=== PATIENT | male | born 1965 | race Caucasian/White ===

== ENCOUNTER → 2016-08-26 | Outpatient (CLI) | payer OTHER ==
[~2016-08-26] MED LIST: AMBIEN10 MG PO; BACTRIM DS TAB1 EACH PO; COREG 6.256.25 MG/TA PO; ERGOCALCIFER50000 IU PO; LEVOTHYROXIN0.025 MG PO; LISINOPRIL10 MG PO; MICRONIZED COLES1 GM PO; NEXIUM 40MG40 MG PO; NORCO 10-325 T1 EACH PO; PRAVACHOL 40MG40 MG PO; PRENATA1 CTB PO; SANDOSTATI IM; SANDOSTATI200 MCG/ML IJ; VITAMIN B-1000 MCG/1 IM; XARELTO20 MG PO; ZYLOPRIM100 MG PO
== END ==
LOC: RAD 11:30
DX: Z51.81 Encounter for therapeutic drug level monitoring (principal); Z79.01 Long term (current) use of anticoagulants; M21.41 Flat foot [pes planus] (acquired), right foot; E11.9 Type 2 diabetes mellitus without complications; M79.671 Pain in right foot; E03.9 Hypothyroidism, unspecified; I82.412 Acute embolism and thrombosis of left femoral vein

== ENCOUNTER → 2016-09-01 | Outpatient (CLI) | payer OTHER | LOC: RAD 12:34 | DX: K90.89 Other intestinal malabsorption (principal); E11.9 Type 2 diabetes mellitus without complications; M79.671 Pain in right foot; L03.115 Cellulitis of right lower limb; Z98.890 Other specified postprocedural states ==

== ENCOUNTER → 2016-09-03 | Outpatient (CLI) | payer OTHER | LOC: LAB 16:42 | DX: E11.9 Type 2 diabetes mellitus without complications (principal) ==

== ENCOUNTER → 2016-09-19 | Outpatient (CLI) | payer OTHER ==
[2016-09-19 17:57] VITALS: BP 146/100
[2016-09-19 19:26] VITALS: BP 192/98
== END ==
LOC: AMSURD 17:03
DX: E86.0 Dehydration (principal); Z98.84 Bariatric surgery status; K91.1 Postgastric surgery syndromes
CPT/HCPCS: J7120

== ENCOUNTER → 2016-09-30 | Day surgery (SDC) | payer OTHER | LOC: MSO 14:56 | DX: K21.9 Gastro-esophageal reflux disease without esophagitis (principal); R11.2 Nausea with vomiting, unspecified; K22.70 Barrett's esophagus without dysplasia; I10 Essential (primary) hypertension; G47.33 Obstructive sleep apnea (adult) (pediatric); Z98.84 Bariatric surgery status | CPT/HCPCS: 00740; A4649; J7030 ==

== ENCOUNTER → 2016-10-10 | Outpatient (CLI) | payer OTHER ==
[2016-10-10 15:38] VITALS: BP 158/89
[2016-10-10 17:56] VITALS: BP 176/96
== END ==
LOC: AMSURD 13:43
DX: E11.9 Type 2 diabetes mellitus without complications (principal); K91.1 Postgastric surgery syndromes; K91.2 Postsurgical malabsorption, not elsewhere classified; R11.0 Nausea
CPT/HCPCS: J7120

== ENCOUNTER → 2016-10-20 | Outpatient (CLI) | payer OTHER ==
[2016-10-20 09:38] VITALS: BP 159/89
[2016-10-20 12:07] VITALS: BP 194/94
== END ==
LOC: RAD 08:39
DX: R10.84 Generalized abdominal pain (principal); K90.89 Other intestinal malabsorption; E11.9 Type 2 diabetes mellitus without complications; E86.0 Dehydration; R93.7 Abnormal findings on diagnostic imaging of other parts of musculoskeletal system
CPT/HCPCS: J7120; Q9967

== ENCOUNTER → 2016-11-06 | Outpatient (CLI) | payer OTHER ==
[2016-11-06 15:30] VITALS: BP 152/95
[2016-11-06 18:02] VITALS: BP 155/88
== END ==
LOC: AMSURD 15:15
DX: R10.84 Generalized abdominal pain (principal); K90.89 Other intestinal malabsorption; E11.9 Type 2 diabetes mellitus without complications; E86.0 Dehydration; R11.0 Nausea; K91.2 Postsurgical malabsorption, not elsewhere classified; K91.1 Postgastric surgery syndromes
CPT/HCPCS: J7120

== ENCOUNTER → 2016-11-20 | Outpatient (CLI) | payer MEDICARE, OTHER ==
[2016-11-20 09:40] VITALS: BP 152/97
--- NOTE | 2016-11-20 12:16 | NUR ---
IVF infusion is completed, patient tolerated well, describes going next to Oncologist for update today on surgery plans for lesion under left arm. he is dimsissed per w/c to care of spouse.
[2016-11-20 12:19] VITALS: BP 128/81
== END ==
LOC: AMSURD 09:32
DX: E86.0 Dehydration (principal); Z98.84 Bariatric surgery status; K91.1 Postgastric surgery syndromes
CPT/HCPCS: J7120

== ENCOUNTER 2016-12-09 13:37 | Emergency (ER) | payer MEDICARE, OTHER ==
[~2016-12-09] VITALS: Ht 177.8 cm; Wt 80.0 kg
[~2016-12-09 13:37] MED LIST changes: -AMBIEN10 MG PO; -LISINOPRIL10 MG PO
[2016-12-09 16:47] VITALS: BP 174/97
== END 2016-12-09 16:45 | disposition home or self-care (01) ==
LOC: ED 13:37
DX: M25.562 Pain in left knee (principal); M25.561 Pain in right knee; W19.XXXA Unspecified fall, initial encounter; Y92.531 Health care provider office as the place of occurrence of the external cause; E11.8 Type 2 diabetes mellitus with unspecified complications; I10 Essential (primary) hypertension; K91.2 Postsurgical malabsorption, not elsewhere classified; K95.89 Other complications of other bariatric procedure; K91.1 Postgastric surgery syndromes; Y83.8 Other surgical procedures as the cause of abnormal reaction of the patient, or of later complication, without mention of misadventure at the time of the procedure; Z98.890 Other specified postprocedural states; C80.1 Malignant (primary) neoplasm, unspecified; E03.9 Hypothyroidism, unspecified
CPT/HCPCS: J7120

== ENCOUNTER 2016-12-20 15:44 | Emergency (ER) | payer MEDICARE, OTHER ==
[~2016-12-20] VITALS: Ht 177.8 cm; Wt 80.9 kg
[2016-12-20 19:10] VITALS: BP 168/94
== END 2016-12-20 19:02 | disposition home or self-care (01) ==
LOC: ED 15:44
DX: E86.0 Dehydration (principal); R10.9 Unspecified abdominal pain; Z98.84 Bariatric surgery status
CPT/HCPCS: J7030

== ENCOUNTER 2016-12-30 11:53 | Outpatient (RCR) | payer MEDICARE, OTHER ==
[~2016-12-30] VITALS: Ht 177.8 cm; Wt 80.9 kg
[2016-12-30 12:21] VITALS: BP 156/79
[2016-12-30 14:26] VITALS: BP 179/96
[2017-01-09 15:37] VITALS: BP 124/77
[2017-01-09] MEDS ORDERED: AMBIEN10 MG PO (16:04)
[2017-01-09] MEDS ORDERED: LISINOPRIL10 MG PO (16:05)
[2017-01-09 17:00] VITALS: BP 133/71
[2017-01-19 13:30] VITALS: BP 115/76
[2017-01-19 15:00] VITALS: BP 142/88
[2017-01-29 13:14] VITALS: BP 165/95
[2017-01-29 13:49] VITALS: BP 162/99
[2017-02-06 13:40] VITALS: BP 132/66
[2017-02-06 13:58] VITALS: BP 144/91
[2017-02-06 14:27] VITALS: BP 156/98
[2017-02-20 15:50] VITALS: BP 138/82
[2017-02-20 17:30] VITALS: BP 172/92
[2017-03-24 08:44] VITALS: BP 141/91
== END 2017-03-30 | disposition home or self-care (01) ==
LOC: AMSURD → EDSTATUS 13:37
DX: E86.0 Dehydration (principal); Z98.84 Bariatric surgery status; K91.1 Postgastric surgery syndromes
CPT/HCPCS: A4301; J3475; J7120

== ENCOUNTER → 2017-03-24 | Outpatient (CLI) | payer MEDICARE, OTHER ==
[~2017-03-24] MED LIST changes: +AMBIEN10 MG PO; +LISINOPRIL10 MG PO
== END ==
LOC: RAD 08:03
DX: K90.49 Malabsorption due to intolerance, not elsewhere classified (principal); E11.9 Type 2 diabetes mellitus without complications; Z12.5 Encounter for screening for malignant neoplasm of prostate; K91.2 Postsurgical malabsorption, not elsewhere classified; C4A.62 Merkel cell carcinoma of left upper limb, including shoulder; R97.20 Elevated prostate specific antigen [PSA]; N52.03 Combined arterial insufficiency and corporo-venous occlusive erectile dysfunction

== ENCOUNTER 2017-04-08 13:52 | Outpatient (RCR) | payer MEDICARE, OTHER ==
[~2017-04-08] VITALS: Ht 177.8 cm; Wt 77.7 kg
[2017-04-08 14:12] VITALS: BP 159/105
[2017-04-08 16:32] VITALS: BP 203/109
--- NOTE | 2017-04-08 16:33 | NUR ---
PT EDUCATED ON HIGH BP, RECOMMENDED TO PT AND HE BE SEEN AT THIS TIME BY A PROVIDER REGARDING ELEVATED BP TODAY, PT DISCUSSING THIS WITH HIS
--- NOTE | 2017-04-08 16:52 | NUR ---
PT REFUSING TO BE SEEN FOR HIGH BP AT THIS TIME, STATES HE IS GOING TO CHECK IT AGAIN AFTER SI[facility] THIS EVENING AND WILL RETURN IF NEEDED, NO FURTHER ORDERS AT THIS TIME
[2017-05-09 14:16] VITALS: BP 135/77
[2017-05-09 16:18] VITALS: BP 157/80
[2017-05-14 15:02] VITALS: BP 128/71
[2017-05-14 17:03] VITALS: BP 166/95
[2017-05-25 17:40] VITALS: BP 170/98
[2017-05-25 20:10] VITALS: BP 160/98
[2017-06-02 13:15] VITALS: BP 165/98
[2017-06-02 15:45] VITALS: BP 169/77
[2017-06-09] MEDS ORDERED: NORVASC 5MG5 MG/TAB PO (14:15)
[2017-06-09] MEDS ORDERED: OSTERA TABLET1 EACH PO (14:16)
[2017-06-09] MEDS ORDERED: ONDANSETRON HYDR4 MG PO (14:16)
[2017-06-09] MEDS ORDERED: GLUCOPHAGE PO (14:17)
[2017-06-09] MEDS ORDERED: NORCO 10-325 T1 EACH PO (14:47)
[2017-06-11 12:27] VITALS: BP 150/88
[2017-06-11 14:33] VITALS: BP 173/97
[2017-06-22] MEDS ORDERED: NEURONTIN300 M1 PO (15:37)
[2017-06-22] MEDS ORDERED: KLONOPIN 1MG1 MG PO (15:37)
[2017-06-22] MEDS ORDERED: LEXAPRO 10MG10 MG PO (15:38)
[2017-06-22] MEDS ORDERED: PRENATAL COMPL1 EACH PO (15:39)
[2017-06-22] MEDS ORDERED: VITAMIN D50000 I2 PO (15:40)
== END 2017-07-07 | disposition home or self-care (01) ==
LOC: AMSURD
DX: E86.0 Dehydration (principal); Z98.84 Bariatric surgery status; K91.1 Postgastric surgery syndromes
CPT/HCPCS: A4301; J1644; J7120

== ENCOUNTER → 2017-05-14 | Outpatient (CLI) | payer MEDICARE, OTHER ==
[2017-05-09 16:18] VITALS: BP 157/80
[2017-05-14 15:20] LABS: EOS # 0.1 (0.04-0.40); EOS % 1.5 % (0.0-4.0); HEMATOCRIT 36.2 % (42.0-52.0); HEMOGLOBIN 11.8 g/dL (13.5-18.0); MEAN CELL VOLUME 106 fl (78-100); MEAN CORPUSCULAR HEMOGLOBIN 35 pg (27-31); MEAN CORPUSCULAR HGB CONC 33 g/dL (33-37); MEAN PLATELET VOLUME 9.2 fl (7.4-10.4); MONO # 0.3 (0.20-0.80); NEU # 2.5 (1.40-6.50); PLATELET COUNT 156 K/mm3 (130-400); RED BLOOD COUNT 3.42 M/mm3 (4.20-5.60)
[2017-05-14 17:35] LABS: BUN/CREATININE RATIO 25.8 (6.0-26.0); CALCIUM 8.7 mg/dL (8.4-10.2); POTASSIUM 4.3 mmol/L (3.6-5.0); TOTAL BILIRUBIN 0.4 mg/dL (0.2-1.3); TOTAL PROTEIN 5.7 g/dL (6.3-8.2)
== END ==
LOC: LAB 14:40
PROVIDERS: Internal Medicine
DX: E11.9 Type 2 diabetes mellitus without complications (principal); K91.1 Postgastric surgery syndromes; Z98.84 Bariatric surgery status

== ENCOUNTER 2017-06-09 13:19 | Emergency (ER) | payer MEDICARE, OTHER ==
[2017-06-09 14:10] LABS: EOS % 0.4 % (0.0-4.0); HEMOGLOBIN 11.6 g/dL (13.5-18.0); LYMPH# 0.8 (1.50-4.00); MEAN CELL VOLUME 102 fl (78-100); MEAN CORPUSCULAR HEMOGLOBIN 34 pg (27-31); MEAN CORPUSCULAR HGB CONC 33 g/dL (33-37); MONO # 0.5 (0.20-0.80); NEU # 3.2 (1.40-6.50); PLATELET COUNT 171 K/mm3 (130-400); RED BLOOD COUNT 3.43 M/mm3 (4.20-5.60); RED CELL DISTRIBUTION WIDTH 12.1 % (11.5-14.5); WHITE BLOOD COUNT 4.5 K/mm3 (4.8-10.8)
[2017-06-09] MEDS ORDERED: NORVASC 5MG5 MG/TAB PO (14:15)
[2017-06-09] MEDS ORDERED: OSTERA TABLET1 EACH PO (14:16)
[2017-06-09] MEDS ORDERED: ONDANSETRON HYDR4 MG PO (14:16)
[2017-06-09] MEDS ORDERED: GLUCOPHAGE PO (14:17)
[2017-06-09 14:20] LABS: ALBUMIN 3.2 g/dL (3.5-5.0); BUN/CREATININE RATIO 18.1 (6.0-26.0); CALCIUM 8.8 mg/dL (8.4-10.2); POTASSIUM 4.1 mmol/L (3.6-5.0); TOTAL BILIRUBIN 0.6 mg/dL (0.2-1.3)
[2017-06-09 14:21] LABS: URINE APPEARANCE CLEAR; URINE BILIRUBIN NEGATIVE (NEGATIVE); URINE BLOOD NEGATIVE (NEGATIVE); URINE COLOR YELLOW; URINE GLUCOSE NEGATIVE (NEGATIVE); URINE KETONE NEGATIVE (NEGATIVE); URINE LEUKOCYTE ESTERASE NEGATIVE (NEGATIVE); URINE NITRATE NEGATIVE (NEGATIVE); URINE PROTEIN(semi-quant) 1+ mg/dL (NEGATIVE); URINE UROBILINOGEN NORMAL (NORMAL); URINE WBC 0-1 /hpf (0-3)
[2017-06-09] MEDS ORDERED: NORCO 10-325 T1 EACH PO (14:47)
[2017-06-09 15:07] VITALS: BP 158/97
== END 2017-06-09 15:07 | disposition home or self-care (01) ==
LOC: ED 13:19
PROVIDERS: Physician Assistant
DX: R29.898 Other symptoms and signs involving the musculoskeletal system (principal); R51 Headache; R41.0 Disorientation, unspecified; E11.40 Type 2 diabetes mellitus with diabetic neuropathy, unspecified; Z98.84 Bariatric surgery status; K91.1 Postgastric surgery syndromes; Z85.821 Personal history of Merkel cell carcinoma; R10.84 Generalized abdominal pain; R60.0 Localized edema
CPT/HCPCS: J1644

== ENCOUNTER → 2017-06-15 | Outpatient (CLI) | payer MEDICARE, BC ==
[2017-06-11 14:33] VITALS: BP 173/97
[~2017-06-15] MED LIST changes: +GLUCOPHAGE PO; +KLONOPIN 1MG1 MG PO; +LEXAPRO 10MG10 MG PO; +NEURONTIN300 M1 PO; +NORVASC 5MG5 MG/TAB PO; +ONDANSETRON HYDR4 MG PO; +OSTERA TABLET1 EACH PO; +PRENATAL COMPL1 EACH PO; +VITAMIN D50000 I2 PO
== END ==
LOC: RAD 12:49
DX: C4A.62 Merkel cell carcinoma of left upper limb, including shoulder (principal); R41.82 Altered mental status, unspecified
CPT/HCPCS: A9585

== ENCOUNTER 2017-06-22 15:06 | Outpatient (RCR) | payer MEDICARE, BC ==
[~2017-06-22] VITALS: Ht 177.8 cm; Wt 77.7 kg
[~2017-06-22 15:06] MED LIST changes: -KLONOPIN 1MG1 MG PO; -LEXAPRO 10MG10 MG PO; -NEURONTIN300 M1 PO; -PRENATAL COMPL1 EACH PO; -VITAMIN D50000 I2 PO
[2017-06-22] MEDS ORDERED: KLONOPIN 1MG1 MG PO (15:37)
[2017-06-22] MEDS ORDERED: NEURONTIN300 M1 PO (15:37)
[2017-06-22] MEDS ORDERED: LEXAPRO 10MG10 MG PO (15:38)
[2017-06-22] MEDS ORDERED: PRENATAL COMPL1 EACH PO (15:39)
[2017-06-22] MEDS ORDERED: VITAMIN D50000 I2 PO (15:40)
[2017-06-22 15:43] VITALS: BP 145/90
[2017-06-22 17:56] VITALS: BP 170/102
[2017-08-24] MEDS ORDERED: MS CONTIN15 MG PO (14:24)
[2017-08-24 14:27] VITALS: BP 118/79
[2017-08-24 15:15] VITALS: BP 123/79
[2017-09-14 09:17] VITALS: BP 141/79
[2017-09-14 11:57] VITALS: BP 127/78
== END 2017-09-20 | disposition home or self-care (01) ==
LOC: AMSURD
DX: E86.0 Dehydration (principal); Z98.84 Bariatric surgery status; K91.1 Postgastric surgery syndromes
CPT/HCPCS: A4301; J7120

== ENCOUNTER 2017-09-26 13:34 | Outpatient (RCR) | payer MEDICARE, BC ==
--- NOTE | 2017-08-24 15:00 | NUR ---
this patients arrives, first liter has infused, when preparing to hang second liter patient states he would like to only receive one liter today and would come back at another time, patient was encouraged to come for fluids when necesary secondary to dehydration not when he feels it works for his schedule. he is dismissed ambulatory to self care
[~2017-09-26] VITALS: Ht 177.8 cm; Wt 77.7 kg
[~2017-09-26 13:34] MED LIST changes: +KLONOPIN 1MG1 MG PO; +LEXAPRO 10MG10 MG PO; +MS CONTIN15 MG PO; +NEURONTIN300 M1 PO; +PRENATAL COMPL1 EACH PO; +VITAMIN D50000 I2 PO
[2017-09-26 13:50] VITALS: BP 130/85
[2017-09-26 16:00] VITALS: BP 152/88
== END 2017-12-25 | disposition home or self-care (01) ==
LOC: AMSURD
DX: E86.0 Dehydration (principal); K91.1 Postgastric surgery syndromes; Z98.84 Bariatric surgery status; Z95.828 Presence of other vascular implants and grafts
CPT/HCPCS: J7120